=== PATIENT | female | born 1995 | race Caucasian/White ===

== ENCOUNTER 2017-01-09 18:23 | Emergency (ER) | payer OTHER, MEDICAID ==
--- NOTE | 2017-01-09 20:16 | OBHP ---
Datetime: 01/09/2017 19:56 IP Adm Impression: Term, intrauterine IP Admit Plan: Observation/Evaluation; Discharge home Admit Comment, IP Provider: 21 yo at 38+2 wks w/ EDC 01/21/2017 by 23+ wk u/s who p/w having abdominal pain this morning, became stronger during the day, then started radiating to the back, rep orts feeling painful ctxns that started around 1:30pm today. Pt denies VB, LOF and reports FM> Pt w as a transfer of care to Dr. Paul of [facility] around 34 wks. GBS positive PMH: Healthy PSH: None Meds: PNVs All: NKDA Fam hx: N/c Soc hx: Pt denies tobacco, alcohol, and illicit drug use [employer] hx: Irreg periods, sometimes skips a month, pt denies STDs PObhx: SAB in 03/2016 PE: AFVSS Gen'l: pt appears comfortable lying in bed Abd: soft, NT, gravdi Ext: NT VE: closed/ long/ posterior at 19:24 EFM: Baseline is 130's, moderate variability, positive accelerations [place]: irregular, q2-4 A/P 21 yo at 38+2 wks w/ ctxn pain, now reports feeling better and wants to go home NST reactive Pt given labor precaution, discharged home, to f/u w/ Dr. Paul next week Extremities - PN: Normal Abdomen - PN: Normal Back - PN: Normal Lungs - PN: Normal Heart - PN: Normal General - PN: Normal FHR - Baseline A Provider: 130 EGA AdmitDate IP: 38.2 Vital Signs Provider: Reviewed; Within Normal Limits IP Chief Complaint: Uterine contractions NICHD Variability Prov Fetus A: Moderate 6-25bpm NICHD Accel Fetus A IP Provider: [id number] FHR Category Provider Fetus A: Category I NICHD Decel Fetus A IP Provider: None Dilatation, Provider: 0 Effacement, Provider: 0 Station, Provider: -3
--- NOTE | 2017-01-09 20:18 | OBDCSUM ---
Datetime: 01/09/2017 19:59 Discharged to, Provider: Home Follow up at, Provider: Dr Paul Disch Instr Activity: Normal activity Disch Instr Diet: Regular Discharge Instructions, Provider: Routine instructions given Discharge Diagnosis, Provider: False Labor - Undelivered Discharge Time: 01/09/2017 20:00 Follow up in weeks, Provider: as scheduled 01/20/17 Disch Referrals: None Contraception discussed, Prov: No
[2017-01-10 00:52] VITALS: BP 107/65; PULSE 98; RESP 18; TEMP 98.5; O2SAT 99
== END 2017-01-09 20:05 | disposition home or self-care (01) ==
LOC: H.EROB2 18:23 → H.EROB 19:51 → H.EROB2 20:05
DX: O47.1 False labor at or after 37 completed weeks of gestation (principal); Z3A.38 38 weeks gestation of pregnancy